=== PATIENT | female | born 1965 | race Caucasian/White ===

== ENCOUNTER 2021-11-29 14:43 | Emergency (ER) | payer OTHER ==
[2021-11-29] MEDS ORDERED: LIDOCAINE 1% MPF 5 ML VIAL ONE (15:17)
[2021-11-29] MEDS ORDERED: IBUPROFEN 400 MG TAB ONE (15:19)
[2021-11-29] MEDS ORDERED: TETANUS & DIPHTHERIA TOX,ADULT 0.5 ML VIAL ONE (15:19)
--- NOTE | 2021-11-29 16:31 | RAD REPORT ---
EXAM DESCRIPTION: RAD - Facial Bones <3 Views - 11/29/2021 4:10 pm CLINICAL HISTORY: FACIAL PAIN COMPARISON: No comparisons FINDINGS: No facial fractures identified. Sinuses are aerated. The orbital rims appear intact IMPRESSION: No facial fracture identified.
--- NOTE | 2021-11-29 16:54 | EDPHYS ---
Physician Documentation [facility] Name: Rosio Butts Age: 56 yrs Sex: Female : 1965 Arrival Date: 11/29/2021 Time: 14:44 Bed 5 Private MD: ED Physician David Burgos HPI: 11/29 18:21 This 56 yrs old Female presents to ER via Ambulatory with complaints of Fall Injury. kb 18:21 Details of fall: The patient fell from an upright position, while walking. Onset: The kb symptoms/episode began/occurred just prior to arrival. Associated injuries: The patient sustained injury to the head, contusion, laceration, pain. Severity of symptoms: At their worst the symptoms were moderate, in the emergency department the symptoms are unchanged. The patient has not experienced similar symptoms in the past. The patient has not recently seen a physician. Patient was at [place], she got caught on the wood as she was walking causing her to trip and fall forward into a fence post. Reports pain to left cheek with laceration. 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 - Social history:: Smoking status: Patient denies any tobacco usage or history of. Patient/guardian denies using alcohol. ROS: 18:20 Constitutional: Negative for fever, chills, and weight loss. kb 18:20 Skin: Positive for laceration(s), of the left cheek. 18:20 All other systems are negative. Exam: 18:20 Constitutional: This is a well developed, well nourished patient who is awake, alert, kb and in no acute distress. ENT: Moist Mucous membranes Cardiovascular: Regular rate and rhythm with a normal S1 and S2. No gallops, murmurs, or rubs. No pulse deficits. Respiratory: Respirations even and unlabored. No increased work of breathing. Talking in full sentences MS/ Extremity: Pulses equal, no cyanosis. Neurovascular intact. Full, normal range of motion. Neuro: Awake and alert, GCS 15, oriented to person, place, time, and situation. Moves all extremities. Normal gait. Psych: Awake, alert, with orientation to person, place and time. Behavior, mood, and affect are within normal limits. 18:20 Head/face: Noted is no obvious of injury or deformity except contusion, that is superficial, of the left cheek, a laceration(s), that is linear, 2.5 cm(s), of the left cheek. 18:20 Skin: injury, laceration(s), the wound is approximately 2.5 cm(s), of the left cheek, that can be described as clean, no foreign body, linear, with mild bleeding. Vital Signs: 15:18 BP 118 / 79; Pulse 83; Resp 18; Pulse Ox 100% on R/A; Pain 9/10; eh3 15:25 Weight 88.45 kg; Height 5 ft. 5 in. (165.10 cm); eh3 16:00 BP 140 / 85; Pulse 57; Resp 18; Pulse Ox 100% on R/A; Pain 6/10; eh3 15:25 Body Mass Index 32.45 (88.45 kg, 165.10 cm) eh3 Laceration: 18:19 Wound Repair of 2.5cm ( 1.0in ) subcutaneous laceration to left cheek. Linear shaped.. kb Distal neuro/vascular/tendon intact. Anesthesia: Wound infiltrated with 3 mls of 1% lidocaine. Wound prep: Extensive cleansing with hibiclenz by me, Wound irrigation with saline by me. Skin closed with 5 5-0 fast absorbing gut using simple sutures and sterile technique. Patient tolerated well. MDM: 14:56 Patient medically screened. kb 18:19 Data reviewed: vital signs, nurses notes. Data interpreted: Pulse oximetry: on room air kb is 100 %. Interpretation: normal. Counseling: I had a detailed discussion with the patient and/or guardian regarding: the historical points, exam findings, and any diagnostic results supporting the discharge/admit diagnosis, the need for outpatient follow up, a family practitioner, to return to the emergency department if symptoms worsen or persist or if there are any questions or concerns that arise at home. 11/29 15:08 Order name: Facial Bones <3 Views XRAY; Complete Time: 16:52 kb 11/29 14:59 Order name: Dressing - Wound; Complete Time: 15:00 kb 11/29 14:59 Order name: Gloves, Sterile; Complete Time: 15:00 kb 11/29 14:59 Order name: Setup Suture Tray; Complete Time: 15:00 kb Administered Medications: 15:17 Not Given (Patient Refused): [place] (HYDROcodone-acetaminophen) (7.5 mg-325 mg) 1 tabs eh3 PO once 15:17 Drug: Ibuprofen 800 mg Route: PO; eh3 16:15 Follow up: Response: Pain is decreased 3 15:22 Drug: Tetanus-Diphtheria Toxoid Adult 0.5 ml {[employer]: [employer]. Exp: eh3 08/02/2023. Lot #: [id number]. } Route: IM; Site: left deltoid; 16:53 Follow up: Response: No adverse reaction 3 16:30 Drug: Lidocaine (1 %) 1 vials {Note: Administered by PAIGE Bingham.} Volume: 5 eh3 ml; Route: Infiltration; Site: affected area; Disposition: 11/30 11:55 Co-signature as Attending Physician, David Burgos MD I agree with the assessment and kdr plan of care. Disposition Summary: 11/29/21 16:54 Discharge Ordered Location: Home kb Condition: Stable kb Diagnosis - Facial Laceration/ Laceration without foreign body of cheek and temporomandibular kb area - Fall on same level from slipping, tripping and stumbling with subsequent striking kb against object Followup: kb - With: Emergency Department - When: As needed - Reason: Worsening of condition Followup: kb - With: Private Physician - When: 2 - 3 days - Reason: Recheck today's complaints, Continuance of care, Re-evaluation by your physician Discharge Instructions: - Discharge Summary Sheet kb - Facial Laceration, [id number] kb - Head Injury, Adult, [id number] kb - Facial or Scalp Contusion, [id number] kb Forms: - Medication Reconciliation Form kb - Thank You Letter kb - Antibiotic Education kb - Prescription Opioid Use kb Signatures: Dispatcher [employer] EDVT Yuliana Fuchs FNP-C FNP-Ckb Rittger, Kevin, MD MD kdr Hall, Erin, RN RN 3 Corrections: (The following items were deleted from the chart) 11/29 15:19 15:18 Allergies: No Known Allergies; [facility]
--- NOTE | 2021-11-29 16:54 | ER ---
Nurse's Notes [facility] Name: Rosio Butts Age: 56 yrs Sex: Female : 1965 Arrival Date: 11/29/2021 Time: 14:44 Bed 5 Private MD: Diagnosis: Facial Laceration/ Laceration without foreign body of cheek and temporomandibular area;Fall on same level from slipping, tripping and stumbling with subsequent striking against object Presentation: 11/29 15:00 Chief complaint: Patient states: fell and hit left cheek on fence post. Mechanism of eh3 Injury: Laceration sustained. Trauma event details: Injury occurred in the [facility]. 15:00 Acuity: HAYDER 3 eh3 15:00 Method Of Arrival: Ambulatory 3 15:04 Coronavirus screen: Vaccine status: Patient reports receiving the 2nd dose of the covid eh3 vaccine. 15:05 Ebola Screen: No symptoms or risks identified at this time. Initial Sepsis Screen: Does eh3 the patient meet any 2 criteria?. Risk Assessment: Do you want to hurt yourself or someone else? Patient reports no desire to harm self or others. 15:18 Initial Sepsis Screen: Does the patient meet any 2 criteria? No. Patient's initial eh3 sepsis screen is negative. Does the patient have a suspected source of infection? No. Patient's initial sepsis screen is negative. Onset of symptoms was November 29, 2021. Triage Assessment: 15:18 General: Appears in no apparent distress. uncomfortable, Behavior is calm, cooperative, eh3 appropriate for age. Pain: Complains of pain in left cheek Pain does not radiate. Pain currently is 9 out of 10 on a pain scale. Quality of pain is described as sharp, Pain began 1 hour ago. Is continuous. EENT: Sclera/Cornea are clear in outer aspect of conjuctiva of right eye, inner aspect of conjuctiva of right eye, outer aspect of conjuctiva of left eye and inner aspect of conjunctiva of left eye. Neuro: Level of Consciousness is awake, alert, obeys commands, Oriented to person, place, time, situation. Cardiovascular: Capillary refill < 3 seconds Patient's skin is warm and dry. Respiratory: Airway is patent Respiratory effort is even, unlabored. GI: No signs and/or symptoms were reported involving the gastrointestinal system. : No signs and/or symptoms were reported regarding the genitourinary system. Derm: No signs and/or symptoms reported regarding the dermatologic system. Musculoskeletal: No signs and/or symptoms reported regarding the musculoskeletal system. Injury Description: Laceration sustained to left cheek is 2.6 to 7.5 cm long, bleeding moderately, a small amount of bleeding noted at this time. 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 - Social history:: Smoking status: Patient denies any tobacco usage or history of. Patient/guardian denies using alcohol. Screenin:35 Abuse screen: Denies threats or abuse. Denies injuries from another. Nutritional eh3 screening: No deficits noted. Tuberculosis screening: No symptoms or risk factors identified. Fall Risk Fall in past 12 months (25 points). No secondary diagnosis (0 pts). No IV (0 pts). Ambulatory Aid- None/Bed Rest/Nurse Assist (0 pts). Gait- Normal/Bed Rest/Wheelchair (0 pts) Mental Status- Oriented to own ability (0 pts). Total Moncada Fall Scale indicates Low Risk Score (25-44 pts). Fall prevention measures have been instituted. Side Rails Up X 2 Placed close to Nursing Station Frequent Obs/Assesments occuring Family Present and informed to notify staff if they need to leave bedside As available Patient and Family Educated on Fall Prevention Program and strategies. Assessment: 15:00 General: Appears in no apparent distress. uncomfortable, Behavior is calm, cooperative, eh3 appropriate for age. Pain: Complains of pain in left cheek Pain does not radiate. Pain currently is 9 out of 10 on a pain scale. Quality of pain is described as sharp, Pain began 30 min ago. Is continuous, Noted to be guarding. Neuro: Level of Consciousness is awake, alert, obeys commands, Oriented to person, place, time, situation. Cardiovascular: Capillary refill < 3 seconds Patient's skin is warm and dry. Respiratory: Airway is patent Respiratory effort is even, unlabored. GI: Abdomen is flat, non-distended. 16:00 Reassessment: Patient is alert, oriented x 3, equal unlabored respirations, skin eh3 warm/dry/pink. Patient states symptoms have improved. Vital Signs: 15:18 BP 118 / 79; Pulse 83; Resp 18; Pulse Ox 100% on R/A; Pain 9/10; eh3 15:25 Weight 88.45 kg; Height 5 ft. 5 in. (165.10 cm); eh3 16:00 BP 140 / 85; Pulse 57; Resp 18; Pulse Ox 100% on R/A; Pain 6/10; eh3 15:25 Body Mass Index 32.45 (88.45 kg, 165.10 cm) eh3 ED Course: 14:44 Patient arrived in ED. as 14:56 Yuliana [facility]-C [facility]. kb 14:56 David Burgos MD is Attending Physician. kb 14:59 Mercy Faria RN is Primary Nurse. eh3 15:01 Triage completed. eh3 15:18 Arm band placed on right wrist. eh3 15:35 Patient has correct armband on for positive identification. Placed in gown. Bed in low eh3 position. Call light in reach. Side rails up X2. Adult w/ patient. Client placed on continuous cardiac and pulse oximetry monitoring. NIBP monitoring applied. Door closed. Noise minimized. Lights dimmed. Warm blanket given. 16:12 Facial Bones <3 Views XRAY In Process Unspecified. EDMS 16:56 No provider procedures requiring assistance completed. eh3 16:56 Patient did not have IV access during this emergency room visit. eh3 Administered Medications: 15:17 Not Given (Patient Refused): [place] (HYDROcodone-acetaminophen) (7.5 mg-325 mg) 1 tabs eh3 PO once 15:17 Drug: Ibuprofen 800 mg Route: PO; eh3 16:15 Follow up: Response: Pain is decreased eh3 15:22 Drug: Tetanus-Diphtheria Toxoid Adult 0.5 ml {Director Funeral: [employer]. Exp: [facility] 08/02/2023. Lot #: [id number]. } Route: IM; Site: left deltoid; 16:53 Follow up: Response: No adverse reaction 3 16:30 Drug: Lidocaine (1 %) 1 vials {Note: Administered by PAIGE Binhgam.} Volume: 5 eh3 ml; Route: Infiltration; Site: affected area; Medication: 15:34 Vaccine Information Statement (VIS) provided today. Questions and/or concerns 3 addressed. VIS edition date: October 2020. Outcome: 16:54 Discharge ordered by MD. jason 17:07 Discharged to home ambulatory, with significant other. 3 17:07 Condition: stable 17:07 Discharge instructions given to patient, significant other, Instructed on discharge instructions, follow up and referral plans. wound care, Demonstrated understanding of instructions, follow-up care, wound care. 17:08 Patient left the ED. 3 Signatures: Dispatcher [employer] EDMS Yuliana Fuchs FNP-C FNP-Ckb Martinez, Amelia as Hall, Erin RN RN 3 Corrections: (The following items were deleted from the chart) 15:19 15:18 Allergies: No Known Allergies; 3 3
[2021-11-29 18:22] VITALS: O2SAT 100
[2021-11-29 18:29] VITALS: BP 140/85
== END 2021-11-29 17:08 | disposition home or self-care (01) ==
LOC: ER 14:43
PROC: 0JQ10ZZ Repair Face Subcutaneous Tissue and Fascia, Open Approach (ICD-10-PCS; principal; 2021-11-29)
DX: S01.412A Laceration without foreign body of left cheek and temporomandibular area, initial encounter (principal); W01.198A Fall on same level from slipping, tripping and stumbling with subsequent striking against other object, initial encounter; Z23 Encounter for immunization; Z88.8 Allergy status to other drugs, medicaments and biological substances
CPT/HCPCS: 70140; 90471; 90714; 99283; J2001